=== PATIENT | female | born 1980 | race Caucasian/White ===

== ENCOUNTER 2020-09-19 21:33 | Emergency (ER) | payer BC ==
[~2020-09-19] VITALS: Ht 167.6 cm; Wt 173.3 kg
[2020-09-19 21:40] VITALS: Ht 167.6 cm; Wt 173.3 kg
[2020-09-19 23:11] LABS: BASOPHIL % 0.1 % (0.2-1.3); PLATELET COUNT 305 x10^3mcL (179-408)
[2020-09-19 23:13] LABS: CALCIUM 8.8 mg/dL (8.5-10.1); CARBON DIOXIDE 28.1 mmol/L (21-32); CHLORIDE SERUM 103 mmol/L (98-107); CREATININE SERUM 0.8 mg/dL (0.6-1.0); GFR1 > 60 mL/min; GLUCOSE SERUM 149 mg/dL (74-106); POTASSIUM SERUM 3.6 mmol/L (3.5-5.1); SODIUM SERUM 138 mmol/L (136-145)
[2020-09-19 23:17] LABS: RED CELL DISTRIBUTION WIDTH 17.5 % (12.3-17.7)
[2020-09-19 23:18] LABS: ALBUMIN 3.7 g/dL (3.4-5.0); ALKALINE PHOSPHATASE 78 U/L (46-116); ALT/SGPT 20 U/L (14-59); AST/SGOT 22 U/L (15-37); BILIRUBIN TOTAL 0.24 mg/dL (0.20-1.00); LIPASE 89 IU/L (73-393); TOTAL PROTEIN, SERUM 7.3 g/dL (6.4-8.2)
[2020-09-20 00:35] VITALS: BP 118/57
== END 2020-09-20 03:24 | disposition home or self-care (01) ==
LOC: ED 21:33
PROVIDERS: Specialist
DX: K80.50 Calculus of bile duct without cholangitis or cholecystitis without obstruction (principal); K21.9 Gastro-esophageal reflux disease without esophagitis; I10 Essential (primary) hypertension; Z91.018 Allergy to other foods
CPT/HCPCS: J1200; J2270; J2405; J3010; J7030